=== PATIENT | female | born 1950 | race Caucasian/White ===

== ENCOUNTER → 2018-01-17 11:05 | Outpatient (CLI) | payer OTHER, MEDICARE, SELFPAY | PROVIDERS: Family Provider Family Medicine; PCP Family Medicine; Visit Provider Family Medicine | DX: N39.0 Urinary tract infection, site not specified (principal); Z53.9 Procedure and treatment not carried out, unspecified reason ==

== ENCOUNTER → 2018-08-11 09:10 | Outpatient (CLI) | payer MEDICARE, OTHER, SELFPAY ==
[2018-08-11 10:41] LABS: Alanine Aminotransferase 27 IU/L (9-52); Albumin 4.2 g/dL (3.5-5.0); Albumin Globulin Ratio 1.4 (1.0-2.8); Alkaline Phosphatase 71 U/L (38-126); Aspartate Aminotransferase 29 IU/L (14-36); BUN Creatinine Ratio 23.3 (6-22); Bilirubin Total 0.3 mg/dL (0.2-1.3); Blood Urea Nitrogen 14 mg/dL (7-17); Calcium 9.7 mg/dL (8.4-10.2); Carbon Dioxide 28 mmol/L (22-32); Chloride 104 mmol/L (98-107); Cholesterol 250 mg/dL (140-199); Estimated Glomerular Filt Rate > 60.0 mL/min (>60); Globulin 2.9 g/dL (1.7-4.1); Glucose 93 mg/dL (80-110); HDL Cholesterol 64 mg/dL (40-60); LDL Cholesterol Calculated 177 mg/dL (<100); Potassium 3.7 mmol/L (3.4-5.1); Sodium 139 mmol/L (137-145); Total Protein 7.1 g/dL (6.3-8.2); Triglycerides 45 mg/dL (35-150)
[2018-08-11 10:49] LABS: HEMOLYSIS < 15 (0-50); High Sensitivity CRP - Cardiac 0.5 mg/L (1.0-3.0)
[2018-08-11 11:13] LABS: TSH w/ Reflex to FT4 0.97 uIU/mL (0.47-4.68)
== END ==
PROVIDERS: Family Provider Family Medicine; PCP Family Medicine; Visit Provider Family Medicine
DX: E78.5 Hyperlipidemia, unspecified (principal); Z82.49 Family history of ischemic heart disease and other diseases of the circulatory system
CPT/HCPCS: 36415; 80053; 80061; 84443; 86140

== ENCOUNTER → 2018-08-21 17:08 | Outpatient (CLI) | payer MEDICARE, OTHER, SELFPAY ==
--- NOTE | 2018-08-21 17:11 | DI.RAD.S_ITS ---
PROCEDURE: XR HIP W PEL IF DONE LT MIN 4V INDICATIONS: locking, limp, decreased ROM R>L TECHNIQUE: AP pelvis with lateral view(s) of the bilateral hip(s). COMPARISON: None. FINDINGS: Bones: Mild symmetric appearing bilateral hip joint osteophytic changes are seen. No fractures or dislocations. Pelvic ring appears intact. No evidence of avascular necrosis of femoral heads. No suspicious bony lesions. Soft tissues: The visualized bowel gas pattern is normal. No suspicious soft tissue calcifications. IMPRESSION: Symmetric appearing mild bilateral hip joint osteoarthritis. Dictated by: Mendoza Willett M.D. on 08/21/2018 at 18:45 Approved by: Mendoza Willett M.D. on 08/21/2018 at 18:46
== END ==
PROVIDERS: Family Provider Family Medicine; PCP Family Medicine; Visit Provider Family Medicine
DX: M16.0 Bilateral primary osteoarthritis of hip (principal)
CPT/HCPCS: 73522

== ENCOUNTER → 2018-09-12 12:33 | Outpatient (CLI) | payer MEDICARE, OTHER, SELFPAY ==
--- NOTE | 2018-09-12 14:42 | DI.MRI.S_ITS ---
PROCEDURE: MR HIP RT WO CON INDICATIONS: right hip locking TECHNIQUE: Noncontrast coronal T1 spin echo and STIR through the bony pelvis. Coronal and axial T2 fast spin echo with fat saturation, sagittal T1 spin echo, and oblique axial T2 fast spin echo with fat saturation through the hip. COMPARISON: None. FINDINGS: Image quality: Diagnostic. Bones and joints: There is no acute fracture, dislocation, suspicious osseous lesion, or evidence of avascular necrosis involving the osseous structures of the right hip. Moderate focal marrow edema is identified involving the greater trochanter of the right proximal femur. Mild to moderate degenerative changes of the right glenohumeral joint are present. In the office angle of the right femoral head measures less than 55?. No significant right hip effusion is identified. The remainder of the imaged osseous structures of the pelvis demonstrate age-appropriate degenerative changes of the lower lumbar spine, sacroiliac joints, pubic symphysis, and left hip. These findings are more prominent involving the pubis symphysis. Labrum: Evaluation of the acetabular labrum is difficult without intra-articular contrast. However, blunting along the anterosuperior labrum is suggestive of a labral tear. No large para labral cysts are evident. Tendons and ligaments: The distal right gluteus medius and gluteus minimus tendons are diffusely edematous and demonstrate low to moderate grade intrasubstance partial thickness tearing at the level of the insertion. A small amount of fluid is contained within the greater trochanteric bursa. There is mild increased signal without significant tearing evident involving the proximal right hamstrings tendons. The distal iliopsoas tendons are intact and otherwise unremarkable. The ligamentum teres appears intact where visualized. Soft tissues: Visualized muscles demonstrate normal bulk and internal signal. Quadratus femoris muscle demonstrates no internal edema to suggest ischiofemoral impingement. The proximal sciatic neurovascular bundle appears normal adjacent to the hamstring tendons. No free pelvic fluid. Bladder wall thickness is normal. Genitourinary structures and bowel loops appear normal where visualized. IMPRESSION: 1. Mild to moderate degenerative changes of the right hip without acute fracture. 2. Anterosuperior right acetabular labral tear. 3. Low to moderate grade partial-thickness tearing and tendinopathy of the distal right gluteus medius and gluteus minimus tendons. 4. Fluid within the greater trochanteric bursa may represent bursitis. Please correlate clinically. 5. Mild proximal right hamstrings tendinopathy. 6. Mild to moderate degenerative changes involving the pelvic joints is most pronounced involving the pubis symphysis. Dictated by: Avery Villafuerte M.D. on 09/12/2018 at 16:13 Approved by: Avery Villafuerte M.D. on 09/12/2018 at 16:17
== END ==
PROVIDERS: PCP Family Medicine; Visit Provider Family Medicine
DX: M24.851 Other specific joint derangements of right hip, not elsewhere classified (principal); M25.551 Pain in right hip; M16.11 Unilateral primary osteoarthritis, right hip; S73.191A Other sprain of right hip, initial encounter; M25.851 Other specified joint disorders, right hip
CPT/HCPCS: 73721

== ENCOUNTER → 2018-10-10 10:00 | Outpatient (CLI) | payer MEDICARE, OTHER, SELFPAY ==
[2018-10-10 10:52] LABS: White Blood Cell Count 5.2 X10^3/uL (4.5-11.0)
[2018-10-10 11:08] LABS: Alanine Aminotransferase 16 IU/L (9-52); Albumin 4.3 g/dL (3.5-5.0); Albumin Globulin Ratio 1.3 (1.0-2.8); Alkaline Phosphatase 72 U/L (38-126); Aspartate Aminotransferase 30 IU/L (14-36); BUN Creatinine Ratio 28.3 (6-22); Bilirubin Total 0.5 mg/dL (0.2-1.3); Bilirubin Unconjugated 0.4 mg/dL (0.0-1.1); Blood Urea Nitrogen 17 mg/dL (7-17); Calcium 10.3 mg/dL (8.4-10.2); Carbon Dioxide 32 mmol/L (22-32); Chloride 101 mmol/L (98-107); Estimated Glomerular Filt Rate > 60.0 mL/min (>60); Globulin 3.2 g/dL (1.7-4.1); Glucose 87 mg/dL (80-110); HEMOLYSIS < 15 (0-50); Potassium 3.7 mmol/L (3.4-5.1); Sodium 140 mmol/L (137-145); Total Protein 7.5 g/dL (6.3-8.2)
== END ==
PROVIDERS: Family Provider Family Medicine; PCP Family Medicine; Visit Provider Podiatrist
DX: B35.1 Tinea unguium (principal)
CPT/HCPCS: 36415; 80048; 80076; 85048

== ENCOUNTER → 2018-10-22 13:43 | Outpatient (CLI) | payer MEDICARE, OTHER, SELFPAY ==
[2018-10-22 14:34] LABS: BUN Creatinine Ratio 21.7 (6-22); Blood Urea Nitrogen 13 mg/dL (7-17); Calcium 9.8 mg/dL (8.4-10.2); Carbon Dioxide 31 mmol/L (22-32); Chloride 100 mmol/L (98-107); Estimated Glomerular Filt Rate > 60.0 mL/min (>60); Glucose 99 mg/dL (80-110); HEMOLYSIS < 15 (0-50); Potassium 3.6 mmol/L (3.4-5.1); Sodium 137 mmol/L (137-145)
[2018-10-25 14:34] LABS: Parathyroid Hormone Int 30 pg/mL (14-64)
== END ==
PROVIDERS: PCP Family Medicine; Visit Provider Family Medicine
DX: E83.52 Hypercalcemia (principal)
CPT/HCPCS: 36415; 80048; 83970

== ENCOUNTER → 2019-04-29 11:39 | Outpatient (CLI) | payer MEDICARE, OTHER, SELFPAY ==
--- NOTE | 2019-04-29 | DI.MG.S_ITS ---
BILATERAL DIGITAL SCREENING MAMMOGRAM 3D/2D WITH CAD: 04/29/2019 CLINICAL: Routine screening. Family history of breast cancer. Comparison is made to exams dated: 11/29/2016 mammogram, 12/14/2015 mammogram, and 11/26/2013 mammogram - [facility]. The tissue of both breasts is heterogeneously dense. This may lower the sensitivity of mammography. Current study was also evaluated with a Computer Aided Detection (CAD) system. There are benign calcifications in both breasts. No significant masses, calcifications, or other findings are seen in either breast. There has been no significant interval change. IMPRESSION: There is no mammographic evidence of malignancy. A 1 year screening mammogram is recommended. This exam was interpreted at Station ID: [id number]. NOTE: For mammograms, a report in lay terms will be sent to the patient. Approximately 15% of breast malignancies will not be visualized mammographically. In the management of a palpable breast mass, a negative mammogram must not discourage biopsy of a clinically suspicious lesion. Electronically Signed By: Leoncio kwon/chantelle:04/29/2019 16:46:25 letter sent: Normal Exam ACR BI-RADS Category 2: Benign Finding(s) 3342F
== END ==
PROVIDERS: PCP Family Medicine; Visit Provider Family Medicine
DX: Z12.31 Encounter for screening mammogram for malignant neoplasm of breast (principal); Z80.3 Family history of malignant neoplasm of breast
CPT/HCPCS: 77063; 77067

== ENCOUNTER → 2019-12-21 10:09 | Outpatient (CLI) | payer MEDICARE, OTHER, SELFPAY | PROVIDERS: PCP Family Medicine; Referring Provider Family Medicine; Visit Provider Family Medicine | DX: M85.852 Other specified disorders of bone density and structure, left thigh (principal); Z78.0 Asymptomatic menopausal state; Z82.62 Family history of osteoporosis | CPT/HCPCS: 77080 ==

== ENCOUNTER → 2019-12-30 07:37 | Outpatient (CLI) | payer MEDICARE, OTHER, SELFPAY ==
[2019-12-30 10:54] LABS: Alanine Aminotransferase 16 IU/L (<35); Albumin 3.7 g/dL (3.5-5.0); Albumin Globulin Ratio 1.4 (1.0-2.8); Alkaline Phosphatase 67 U/L (38-126); Aspartate Aminotransferase 32 IU/L (14-36); BUN Creatinine Ratio 23.9 (6-22); Bilirubin Total 0.3 mg/dL (0.2-1.3); Blood Urea Nitrogen 11 mg/dL (7-17); Calcium 9.6 mg/dL (8.4-10.2); Carbon Dioxide 29 mmol/L (22-32); Chloride 107 mmol/L (98-107); Cholesterol 214 mg/dL (140-199); Estimated Glomerular Filt Rate > 60.0 mL/min (>60); Globulin 2.7 g/dL (1.7-4.1); Glucose 88 mg/dL (80-110); HDL Cholesterol 61 mg/dL (40-60); HEMOLYSIS < 15 (0-50); LDL Cholesterol Calculated 143 mg/dL (<100); Potassium 4.1 mmol/L (3.4-5.1); Sodium 139 mmol/L (137-145); Total Protein 6.4 g/dL (6.3-8.2); Triglycerides 48 mg/dL (35-150)
[2019-12-30 10:58] LABS: High Sensitivity CRP - Cardiac 0.6 mg/L (1.0-3.0)
[2019-12-30 12:39] LABS: TSH w/ Reflex to FT4 1.36 uIU/mL (0.47-4.68)
== END ==
PROVIDERS: PCP Family Medicine; Referring Provider Family Medicine; Visit Provider Family Medicine
DX: E78.5 Hyperlipidemia, unspecified (principal); Z82.49 Family history of ischemic heart disease and other diseases of the circulatory system
CPT/HCPCS: 36415; 80053; 80061; 84443; 86140

== ENCOUNTER → 2020-01-07 11:24 | Outpatient (CLI) | payer MEDICARE, OTHER, SELFPAY | PROVIDERS: PCP Family Medicine; Referring Provider Family Medicine; Visit Provider Family Medicine | DX: M85.80 Other specified disorders of bone density and structure, unspecified site (principal) | CPT/HCPCS: 36415; 82306 ==

== ENCOUNTER → 2020-01-13 07:27 | Outpatient (CLI) | payer MEDICARE, OTHER, SELFPAY ==
[2020-01-13 09:16] LABS: TSH w/ Reflex to FT4 1.51 uIU/mL (0.47-4.68)
[2020-01-15 14:36] LABS: C-Telopeptide, Serum 329 pg/mL (.)
== END ==
PROVIDERS: PCP Family Medicine; Referring Provider Family Medicine; Visit Provider Family Medicine
DX: M85.80 Other specified disorders of bone density and structure, unspecified site (principal); E78.5 Hyperlipidemia, unspecified; Z82.49 Family history of ischemic heart disease and other diseases of the circulatory system
CPT/HCPCS: 36415; 82523; 84443

== ENCOUNTER → 2020-04-18 08:16 | Outpatient (CLI) | payer MEDICARE, OTHER, SELFPAY ==
[2020-04-22 18:43] LABS: C-Telopeptide, Serum 76 pg/mL (.)
== END ==
PROVIDERS: PCP Family Medicine; Referring Provider Family Medicine; Visit Provider Family Medicine
DX: M85.80 Other specified disorders of bone density and structure, unspecified site (principal)
CPT/HCPCS: 36415; 82523

== ENCOUNTER → 2020-09-27 10:20 | Outpatient (CLI) | payer MEDICARE, OTHER, SELFPAY ==
--- NOTE | 2020-09-27 | DI.MG.S_ITS ---
BILATERAL DIGITAL SCREENING MAMMOGRAM 3D/2D WITH CAD: 09/27/2020 CLINICAL: Routine screening. Family history of breast cancer. Comparison is made to exams dated: 04/29/2019 mammogram - [facility], 11/29/2016 mammogram, and 12/14/2015 mammogram - [facility]. The tissue of both breasts is heterogeneously dense. This may lower the sensitivity of mammography. Current study was also evaluated with a Computer Aided Detection (CAD) system. There are benign calcifications in both breasts. There also are benign post operative findings in both breasts. No significant masses, calcifications, or other findings are seen in either breast. There has been no significant interval change. IMPRESSION: BENIGN There is no mammographic evidence of malignancy. A 1 year screening mammogram is recommended. This exam was interpreted at Station ID: [id number]. NOTE: For mammograms, a report in lay terms will be sent to the patient. Approximately 15% of breast malignancies will not be visualized mammographically. In the management of a palpable breast mass, a negative mammogram must not discourage biopsy of a clinically suspicious lesion. Electronically Signed By: Oracio fried/chantelle:09/27/2020 12:35:18 letter sent: Normal Exam ACR BI-RADS Category 2: Benign Finding(s) 3342F
== END ==
PROVIDERS: PCP Family Medicine; Referring Provider Family Medicine; Visit Provider Family Medicine
DX: Z12.31 Encounter for screening mammogram for malignant neoplasm of breast (principal); Z80.3 Family history of malignant neoplasm of breast
CPT/HCPCS: 77063; 77067

== ENCOUNTER → 2021-01-10 08:26 | Outpatient (CLI) | payer MEDICARE, OTHER, SELFPAY ==
[2021-01-10 09:12] LABS: Alanine Aminotransferase 19 IU/L (<35); Albumin 4.2 g/dL (3.5-5.0); Albumin Globulin Ratio 1.4 (1.0-2.8); Alkaline Phosphatase 59 U/L (38-126); Aspartate Aminotransferase 34 IU/L (14-36); BUN Creatinine Ratio 27.8 (6-22); Bilirubin Total 0.3 mg/dL (0.2-1.3); Blood Urea Nitrogen 15 mg/dL (7-17); Calcium 9.8 mg/dL (8.4-10.2); Carbon Dioxide 30 mmol/L (22-32); Chloride 107 mmol/L (98-107); Estimated Glomerular Filt Rate > 60.0 mL/min (>60); Globulin 2.9 g/dL (1.7-4.1); Glucose 97 mg/dL (80-110); HEMOLYSIS < 15 (0-50); Potassium 4.2 mmol/L (3.4-5.1); Sodium 141 mmol/L (137-145); Total Protein 7.1 g/dL (6.3-8.2)
[2021-01-10 09:15] LABS: High Sensitivity CRP - Cardiac 0.5 mg/L (1.0-3.0)
[2021-01-13 16:29] LABS: C-Telopeptide, Serum 50 pg/mL (.)
== END ==
PROVIDERS: PCP Family Medicine; Referring Provider Family Medicine; Visit Provider Family Medicine
DX: M85.80 Other specified disorders of bone density and structure, unspecified site (principal); R03.0 Elevated blood-pressure reading, without diagnosis of hypertension; Z82.49 Family history of ischemic heart disease and other diseases of the circulatory system; Z78.0 Asymptomatic menopausal state
CPT/HCPCS: 36415; 80053; 82306; 82523; 86140

== ENCOUNTER 2021-08-28 18:10 | Emergency (ER) | payer MEDICARE, OTHER, SELFPAY ==
[2021-08-28] VITALS (13 sets, daily range): BP systolic 142–184; BP diastolic 70–104; PULSE 77–160; RESP 16–18; TEMP 36.4; O2SAT 94–98; BMI 24.9
--- NOTE | 2021-08-28 18:28 | DI.RAD.S_ITS ---
PROCEDURE: XR CHEST 1V INDICATIONS: chest pain TECHNIQUE: One view of the chest was acquired. COMPARISON: None. FINDINGS: Surgical changes and devices: None. Lungs and pleura: Lungs are clear. No pleural effusions or pneumothorax. Mediastinum: Mediastinal contours appear normal. Heart size is normal. Bones and chest wall: No suspicious bony lesions. Overlying soft tissues appear unremarkable. IMPRESSION: No acute cardiopulmonary abnormality. Dictated by: Reji Jain M.D. on 08/28/2021 at 19:13 Approved by: Reji Jain M.D. on 08/28/2021 at 19:13
--- NOTE | 2021-08-28 18:40 | PC.NURSE ---
While I was swabbing the patient for covid her heart rate decreased from a regular and consistent rate of 150bpm to 105bpm. EKG shows sinus tach at this time. NO EKG done of heart rate 150bpm, unsure which rhythm is was.
[2021-08-28] MEDS: SODIUM CHLORIDE 0.9% 1,000 ML 1000 ML IV (18:44)
[2021-08-28 18:45] LABS: Add Manual Diff / Slide Review NO; Basophils Absolute Auto 0 /uL (0-100); Basophils Percent Auto 0.5 % (0-2); Eosinophils Absolute Auto 100 /uL (0-450); Eosinophils Percent Auto 1.3 % (2-4); Hematocrit 47.5 % (36-46); Hemoglobin 16.2 g/dL (12.0-16.0); Lymphocytes Absolute Auto 1400 /uL (1100-4500); Lymphocytes Percent Auto 36.4 % (25-40); Mean Corpuscular HGB Conc 34.2 % (30-36); Mean Corpuscular Hemoglobin 29.9 PG (26-34); Mean Corpuscular Volume 87.7 fL (80-100); Monocytes Absolute Auto 600 /uL (0-900); Monocytes Percent Auto 15.2 % (3-14); Neutrophils Absolute Auto 1800 /uL (1500-7000); Neutrophils Percent Auto 46.6 % (50-75); Platelet Count 216 X10^3/uL (150-400); Red Blood Cell Count 5.42 X10^6/uL (4.0-5.2); Red Cell Distribution Width 13.4 % (11.6-14.8); White Blood Cell Count 3.8 X10^3/uL (4.5-11.0)
[2021-08-28 18:58] LABS: COVID19 -Nasal RAPID Negative (Negative)
[2021-08-28 19:16] LABS: Alanine Aminotransferase 22 IU/L (<35); Albumin 4.7 g/dL (3.5-5.0); Albumin Globulin Ratio 1.3 (1.0-2.8); Alkaline Phosphatase 75 U/L (38-126); Aspartate Aminotransferase 43 IU/L (14-36); BUN Creatinine Ratio 22.2 (6-22); Bilirubin Total 0.3 mg/dL (0.2-1.3); Blood Urea Nitrogen 14 mg/dL (7-17); Calcium 10.4 mg/dL (8.4-10.2); Carbon Dioxide 27 mmol/L (22-32); Chloride 103 mmol/L (98-107); Creatine Kinase 101 U/L (30-135); Estimated Glomerular Filt Rate > 60.0 mL/min (>60); Globulin 3.5 g/dL (1.7-4.1); Glucose 115 mg/dL (80-110); Lipase 112 U/L (23-300); Magnesium 1.9 mg/dL (1.6-2.3); Potassium 3.3 mmol/L (3.4-5.1); Sodium 140 mmol/L (137-145); Total Protein 8.2 g/dL (6.3-8.2)
--- NOTE | 2021-08-28 19:21 | ED_ITS ---
HPI - Arrhythmia/Palpitations General Chief Complaint: Arrhythmia/Palpitations Stated Complaint: High BP and HR Time Seen by Provider: 08/28/21 19:18 Mode of arrival: Family Vehicle History of Present Illness HPI narrative: Otherwise healthy 71-year-old woman with no chronic medications and no recent fnic-afv-sbpclmg medications presents with complaints of her heart rate at 150 for the last 2-3 hours. She noted at this afternoon while she was bending over a chair. She notes that she has had an upper respiratory infection for the past 4 days describes runny nose, sneezing, coughing very poor sleep on the no fevers no prior episodes palpitations no lower extremity edema and no orthopnea. She has not had nausea, vomiting or diarrhea. She is not complaining of a headache. She does note that she has not been eating or drinking as much over the last couple of days because she has been feeling unwell. Related Data Home Medications Medication Instructions Recorded Confirmed multivitamin (Daily Multi-Vitamin) 1 tab PO DAILY 01/15/20 02/20/21 Previous Rx's Medication Instructions Recorded measles,mumps,rubella vacc(PF) 0.5 ml SUBCUT ONCE #1 each 01/06/20 1,000-12,019XAED46/0.5 mL subcut alendronate 70 mg tablet 70 mg PO QWEEK #12 tab 03/07/21 estradiol 10 mcg vaginal tablet 10 mcg VAGINAL 2XW #32 tab 03/09/21 Allergies Allergy/AdvReac Type Severity Reaction Status Date / Time Quinolones [QUINOLONES] Allergy Mild Verified 08/28/21 18:27 Review of Systems Review of Systems Narrative: Remainder of complete review of systems is otherwise unremarkable except for that included in the HPI. Patient History Medical History (Updated 08/28/21 @ 20:42 by Cindi Oquendo MD) Alopecia (~2007) Frequent UTI Measles Vaginal dryness Surgical History Anesthesia Status post breast biopsy (~2006) Family History Father Prostate cancer Smoker Alcohol drinker Heart attack Mother No problems noted. Social History Smoking Status: Never smoker Smoking Status: Never smoker alcohol intake frequency: a few times a month Substance Use Type: does not use Exam Initial Vital Signs Initial Vital Signs: Vital Signs Temperature 97.6 F 08/28/21 18:22 Pulse Rate 160 H 08/28/21 18:22 Respiratory Rate 18 08/28/21 18:22 Blood Pressure 154/104 H 08/28/21 18:22 Pulse Oximetry 98 08/28/21 18:22 General: Healthy appearing, in no acute distress. Able to give a complete and coherent history. Well-nourished well-developed HEENT: Moist mucous membranes, normal sclera with reactive pupils, Neck: No JVD, supple Respiratory: Lungs are clear to auscultation, no wheezing no rales no rhonchi. Full and symmetrical air movement Cardiac: Regular rate and rhythm no murmurs no bruits Abdomen: Soft, nontender, good bowel tones, no flank pain Skin: Warm and dry, no rashes Neurologic: Grossly neurologically intact with no obvious asymmetries or abnor malities Extremities: No trauma, well perfused Psych: Cooperative, appropriate insight and affect Course Orders Ordered: ED Orders 08/28/21 18:28 XR chest 1V Stat Complete Blood Count AUTO DIFF Stat Comprehensive Metabolic Panel Stat Lipase Stat Magnesium Stat Troponin & CK Cardiac Panel Stat EKG-12 Lead Stat 08/28/21 18:38 COVID19 -Nasal RAPID/Pre-Proc Stat Discontinued Medications Sodium Chloride (Normal Saline 0.45%) 1,000 mls @ 1,000 mls/hr IV BOLUS ONE Stop: 08/28/21 19:38 Last Admin: 08/28/21 18:42 Dose: Not Given Documented by: RAYMOND Sodium Chloride (Normal Saline 0.9%) 1,000 mls @ 1,000 mls/hr IV BOLUS ONE Stop: 08/28/21 19:41 Last Infusion: 08/28/21 19:59 Dose: 0 mls/hr Documented by: Admin: 08/28/21 18:44 Dose: 1,000 mls/hr Documented by: RAYMOND Vital Signs Vital signs: Vital Signs - 8 hr 08/28/21 18:22 08/28/21 18:31 08/28/21 18:45 Temperature 97.6 F Pulse Rate 160 H 108 H 98 H Respiratory Rate 18 Blood Pressure 154/104 H 169/92 H Pulse Oximetry 98 96 95 04/11/22 19:00 08/28/21 19:15 08/28/21 19:30 Temperature Pulse Rate 92 H 87 82 Respiratory Rate Blood Pressure 154/80 H 158/74 H Pulse Oximetry 94 94 95 08/28/21 19:45 08/28/21 20:00 Temperature Pulse Rate 79 89 Respiratory Rate 16 Blood Pressure 184/86 H Pulse Oximetry 95 97 MDM - Arrhythmia/Palpitations Lab Data Result diagrams: 08/28/21 18:28 08/28/21 18:28 Labs: Lab Results 08/28/21 08/28/21 08/28/21 Range/Units 18:28 18:28 18:38 WBC 3.8 L (4.5-11.0) X10^3/uL RBC 5.42 H (4.0-5.2) X10^6/uL Hgb 16.2 H (12.0-16.0) g/dL Hct 47.5 H (36-46) % MCV 87.7 (80-100) fL MCH 29.9 (26-34) PG MCHC 34.2 (30-36) % RDW 13.4 (11.6-14.8) % Plt Count 216 (150-400) X10^3/uL Neut % (Auto) 46.6 L (50-75) % Lymph % (Auto) 36.4 (25-40) % [place] % (Auto) 15.2 H (3-14) % Eos % (Auto) 1.3 L (2-4) % Baso % (Auto) 0.5 (0-2) % Neut # (Auto) 1800 (8168-1888) /uL Lymph # (Auto) 1400 (2794-4795) /uL [place] # (Auto) 600 (0-900) /uL Eos # (Auto) 100 (0-450) /uL Baso # (Auto) 0 (0-100) /uL Sodium 140 (137-145) mmol/L Potassium 3.3 L (3.4-5.1) mmol/L Chloride 103 (98-107) mmol/L Carbon Dioxide 27 (22-32) mmol/L BUN 14 (7-17) mg/dL Creatinine 0.63 (0.52-1.04) mg/dL Estimated GFR > 60.0 (>60) mL/min BUN/Creatinine Ratio 22.2 H (6-22) Glucose 115 H (80-110) mg/dL Calcium 10.4 H (8.4-10.2) mg/dL Magnesium 1.9 (1.6-2.3) mg/dL Total Bilirubin 0.3 (0.2-1.3) mg/dL AST 43 H (14-36) IU/L ALT 22 (<35) IU/L Alkaline Phosphatase 75 (38-126) U/L Total Creatine Kinase 101 (30-135) U/L CK-MB (CK-2) 2.33 (<2.37) ng/mL CK-MB (CK-2) Rel Index 2.3 (1.5-5.0) % Troponin I < 0.012 (0.01-0.034) ng/mL Total Protein 8.2 (6.3-8.2) g/dL Albumin 4.7 (3.5-5.0) g/dL Globulin 3.5 (1.7-4.1) g/dL Albumin/Globulin Ratio 1.3 (1.0-2.8) Lipase 112 (23-300) U/L SARS-CoV-2 (PCR) Negative (Negative) Imaging Data Chest x-ray: Radiologist's Impresson: FINDINGS:? ? Surgical changes and devices:? None.? ? Lungs and pleura:? Lungs are clear.? No pleural effusions or pneumothorax.? ? Mediastinum:? Mediastinal contours appear normal.? Heart size is normal.? ? Bones and chest wall:? No suspicious bony lesions.? Overlying soft tissues appear unremarkable.? ? IMPRESSION:? No acute cardiopulmonary abnormality. ? ? Dictated by: Reji Jain M.D. on 08/28/2021 at 19:13? ?? ECG Data Interpretation: Sinus rhythm at a rate of 108 Normal intervals, normal axis No acute ischemic changes MDM Narrative Medical decision making narrative: 71-year-old woman who presents to triage with a heart rate at 155 complaining of upper respiratory symptoms. COVID swab was done in triage and with posterior pharyngeal stimulation she converted to a rate in the 105 range and initial EKG shows sinus tach only. She has not had previous episodes of arrhythmia. This lasted for approximately an hour and half. Was not associated with pain or dyspnea just the sensation that her heart was beating quickly. Workup is entirely unremarkable. No evidence of pneumonia, acute coronary syndrome significant electrolyte abnormalities. She has have a minor hypokalemia at 3.3 but normally functioning kidneys and is now starting to eat normally. I suspect that whatever the atrial arrhythmia was was related to dehydration, sleep deprivation and her acute upper respiratory illness. Her blood pressures have been slightly elevated and I have asked her to check these as an outpatient daily. She had an episode last summer with significant elevated blood pressures that when followed on a regular basis over the course of a month were back down in the 120-130 systolic range with no additional treatment required. Have her follow-up with her primary care physician and return to the ER if she has additional questions. All of this is explained to patient and her , questions are answered she is safe for home discharge Discharge Plan Departure Patient Disposition: Home Clinical Impression: Arrhythmia, atrial, Elevated blood pressure reading, Upper respiratory infection Activity Restrictions/Additional Instructions: Thank you for coming in today You were in a rapid rhythm when you came into the emergency department and with the posterior pharyngeal swab for the COVID test we stimulated your vagus nerve enough that you spontaneously converted to a regular sinus rhythm Your blood work was very reassuring in your chest x-ray was normal. I am not seeing any evidence of severe bacterial infection, heart attack or heart attack like syndromes or stroke or stroke-like syndromes. Your blood pressure was slightly elevated however when you been feeling generally unwell, not sleeping well for the past few nights my recommendation at this point will be to simply check daily blood pressures and see how they trend. You will need to follow-up with her primary care physician within the next 1-2 weeks. Please make sure you bring all of those records with you to review with your new physician Regarding the fast heart rate, we do not know what it was because it had converted to regular sinus rhythm by the time we did an EKG. If you have another episode of this, consider calling 911 and explaining that you have been having palpitations and ask them to do an EKG so that we can document what the rhythm is. Your primary care doctor may want you to do some outpatient cardiac monitoring as well. . If you have new or worsening symptoms, please return to the ER Prescriptions: No Action multivitamin [Daily Multi-Vitamin] Tablet 1 tab PO DAILY 0RF alendronate 70 mg tablet 70 mg PO QWEEK Qty: 12 4RF estradiol 10 mcg tablet 10 mcg vaginal 2XW Qty: 32 3RF measles,mumps,rubella vacc(PF) 1,000-12,500 TCID50/0.5 mL recon soln 0.5 ml SUBCUT ONCE Qty: 1 1RF Referrals: Dilma Martino DO [Primary Care Provider] -
[2021-08-28 19:28] LABS: Troponin I < 0.012 ng/mL (0.01-0.034)
[2021-08-28 19:31] LABS: CKMB % Relative Index 2.3 % (1.5-5.0); Creatine Kinase MB 2.33 ng/mL (<2.37); HEMOLYSIS 17 (0-50)
== END 2021-08-28 20:56 | disposition home or self-care (01) ==
PROVIDERS: Emergency Provider Emergency Medicine; PCP Family Medicine
DX: I49.8 Other specified cardiac arrhythmias (principal); R03.0 Elevated blood-pressure reading, without diagnosis of hypertension; J06.9 Acute upper respiratory infection, unspecified; Z20.822 Contact with and (suspected) exposure to COVID-19
CPT/HCPCS: 36415; 71045; 80053; 82550; 82553; 83690; 83735; 84484; 85025; 87635; 93005; 93010; 96360; 99284; C9803

== ENCOUNTER → 2021-12-14 11:16 | Outpatient (CLI) | payer MEDICARE, OTHER, SELFPAY ==
--- NOTE | 2021-12-14 | DI.MG.S_ITS ---
BILATERAL DIGITAL SCREENING MAMMOGRAM 3D/2D WITH CAD: 12/14/2021 CLINICAL: Routine screening. Family history of breast cancer. Comparison is made to exams dated: 09/27/2020 mammogram, 04/29/2019 mammogram - [facility], and 11/29/2016 mammogram - [facility]. The tissue of both breasts is heterogeneously dense. This may lower the sensitivity of mammography. Current study was also evaluated with a Computer Aided Detection (CAD) system. There is a possible developing oval focal asymmetry in the right breast at 9 o'clock middle depth. No other significant masses, calcifications, or other findings are seen in either breast. IMPRESSION: INCOMPLETE: NEEDS ADDITIONAL IMAGING EVALUATION The possible developing oval focal asymmetry in the right breast is indeterminate. Additional views with possible ultrasound are recommended. Based on Tyrer-Cuzick model (a risk assessment model), the patient's lifetime risk is 20.6% and her 10 year risk is 13.4%. If a patient has an elevated risk, a more comprehensive evaluation should be considered and/or a referral to a genetic counselor. The [place] [employer], [place] [employer], and NCCN Guidelines advise the consideration of Breast MRI as an adjunct to screening mammography in patients whose Lifetime risk to develop breast cancer is 20% or higher. This exam was interpreted at Station ID: [id number]. NOTE: For mammograms, a report in lay terms will be sent to the patient. Approximately 15% of breast malignancies will not be visualized mammographically. In the management of a palpable breast mass, a negative mammogram must not discourage biopsy of a clinically suspicious lesion. Electronically Signed By: Nikki rodgers/chantelle:12/14/2021 14:33:09 letter sent: Additional Imaging Needed ACR BI-RADS Category 0: Incomplete 3340F
== END ==
PROVIDERS: PCP Pediatrics; Referring Provider Pediatrics; Visit Provider Pediatrics
DX: Z12.31 Encounter for screening mammogram for malignant neoplasm of breast (principal); Z80.3 Family history of malignant neoplasm of breast
CPT/HCPCS: 77063; 77067

== ENCOUNTER → 2021-12-28 13:18 | Outpatient (CLI) | payer MEDICARE, OTHER, SELFPAY ==
--- NOTE | 2021-12-28 | DI.MG.S_ITS ---
UNILATERAL RIGHT DIGITAL DIAGNOSTIC MAMMOGRAM 3D/2D WITH ADDITIONAL VIEWS: 12/28/2021 CLINICAL: Additional evaluation requested from prior study. Comparison is made to exams dated: 12/14/2021 mammogram, 09/27/2020 mammogram, and 04/29/2019 mammogram - [facility]. The tissue of right breast is heterogeneously dense. This may lower the sensitivity of mammography. No significant masses, calcifications, or other findings are seen in the breast. In the 7:00 to 8:00 position 7 to 8 cm from the nipple there is a likely cluster of lymph nodes measuring 1.9 x 1.1 cm. These appear stable compared to prior mammograms/tomograms. IMPRESSION: INCOMPLETE: NEEDS ADDITIONAL IMAGING EVALUATION Ultrasound is recommended for further evaluation. Ultrasound will be performed and dictated separately. Based on Tyrer-Cuzick model (a risk assessment model), the patient's lifetime risk is 20.6% and her 10 year risk is 13.4%. If a patient has an elevated risk, a more comprehensive evaluation should be considered and/or a referral to a genetic counselor. The [place] [employer], [employer] [place], and NCCN Guidelines advise the consideration of Breast MRI as an adjunct to screening mammography in patients whose Lifetime risk to develop breast cancer is 20% or higher. This exam was interpreted at Station ID: [id number]. NOTE: For mammograms, a report in lay terms will be sent to the patient. Approximately 15% of breast malignancies will not be visualized mammographically. In the management of a palpable breast mass, a negative mammogram must not discourage biopsy of a clinically suspicious lesion. Electronically Signed By: Reji Jain acr/:12/28/2021 14:33:33 ACR BI-RADS Category 0: Incomplete 3340F
--- NOTE | 2021-12-28 | DI.US.S_ITS ---
LIMITED ULTRASOUND OF RIGHT BREAST: 12/28/2021 CLINICAL: Patient returns today to evaluate a density in the right breast. No prior exams were available for comparison. Color flow and real-time ultrasound of the right breast 7-8 o'clock region were performed. Cook scale images of the real-time examination were reviewed. In the right breast 7:00 position 7 cm from nipple there is a cluster of lymph nodes measuring 1.9 x 1.1 cm. Additionally, prior tomograms were evaluated and this finding appears stable on mammogram. No additional finding is identified with ultrasound. IMPRESSION: BENIGN There is no sonographic evidence of malignancy. A 1 year screening mammogram is recommended. This exam was interpreted at Station ID: [id number]. Electronically Signed By: Reji Jain acr/:12/28/2021 14:35:14 letter sent: Normal Exam Ultrasound BI-RADS: 2 Benign
== END ==
PROVIDERS: PCP Pediatrics; Referring Provider Pediatrics; Visit Provider Pediatrics
DX: R92.8 Other abnormal and inconclusive findings on diagnostic imaging of breast (principal)
CPT/HCPCS: 76642; 77065; G0279

== ENCOUNTER → 2023-02-20 11:50 | Outpatient (CLI) | payer MEDICARE, OTHER, SELFPAY ==
--- NOTE | 2023-02-20 | DI.MG.S_ITS ---
BILATERAL DIGITAL SCREENING MAMMOGRAM 3D/2D WITH CAD: 02/20/2023 CLINICAL: Routine screening. Family history of breast cancer. Comparison is made to exams dated: 12/14/2021 mammogram, 09/27/2020 mammogram, and 04/29/2019 mammogram - [facility]. Both breasts are heterogeneously dense, which may obscure small masses (category c / 51-75% glandular tissue). Current study was also evaluated with a Computer Aided Detection (CAD) system. No significant masses, calcifications, or other findings are seen in either breast. There has been no significant interval change. IMPRESSION: NEGATIVE There is no mammographic evidence of malignancy. A 1 year screening mammogram is recommended. Based on the Tyrer Cuzick model (a risk assessment model) the patient's lifetime risk is 19.5% and her 10 year risk is 13.7%. According to the ACR, ACS, and NCCN guidelines, an annual breast MRI exam along with mammogram is recommended if the patient's lifetime risk is 20% or greater. This exam was interpreted at Station ID: [id number]. NOTE: For mammograms, a report in lay terms will be sent to the patient. Approximately 15% of breast malignancies will not be visualized mammographically. In the management of a palpable breast mass, a negative mammogram must not discourage biopsy of a clinically suspicious lesion. Electronically Signed By: Leoncio kwon/chantelle:02/20/2023 17:35:55 letter sent: Normal Exam ACR BI-RADS Category 1: Negative 3341F
== END ==
PROVIDERS: PCP Pediatrics; Referring Provider Student in an Organized Health Care Education/Training Program; Visit Provider Student in an Organized Health Care Education/Training Program
DX: Z12.31 Encounter for screening mammogram for malignant neoplasm of breast (principal); Z80.3 Family history of malignant neoplasm of breast
CPT/HCPCS: 77063; 77067

== ENCOUNTER → 2024-03-06 11:01 | Outpatient (CLI) | payer MEDICARE, OTHER, SELFPAY ==
--- NOTE | 2024-03-06 11:02 | DI.MG.S_ITS ---
BILATERAL DIGITAL SCREENING MAMMOGRAM 3D/2D WITH CAD: 03/06/2024 CLINICAL: Routine screening. Family history of breast cancer. Comparison is made to exams dated: 02/20/2023 mammogram, 12/14/2021 mammogram, 09/27/2020 mammogram, 12/28/2021 mammogram, 04/29/2019 mammogram - [facility], and 11/29/2016 mammogram - [facility]. The breasts are heterogeneously dense, which may obscure small masses (category c / 51-75% glandular tissue). Current study was also evaluated with a Computer Aided Detection (CAD) system. There are benign post operative findings in both breasts. No significant masses, calcifications, or other findings are seen in either breast. There has been no significant interval change. IMPRESSION: BENIGN There is no mammographic evidence of malignancy. A 1 year screening mammogram is recommended. Based on the Tyrer Cuzick model (a risk assessment model) the patient's lifetime risk is 18.5% and her 10 year risk is 14.1%. According to the ACR, ACS, and NCCN guidelines, an annual breast MRI exam along with mammogram is recommended if the patient's lifetime risk is 20% or greater. This exam was interpreted at Station ID: [id number]. NOTE: For mammograms, a report in lay terms will be sent to the patient. Approximately 15% of breast malignancies will not be visualized mammographically. In the management of a palpable breast mass, a negative mammogram must not discourage biopsy of a clinically suspicious lesion. Electronically Signed By: Rahel Arguelles M.D., Ph.D. matilde/chantelle:03/06/2024 23:24:47 letter sent: Normal Exam ACR BI-RADS Category 2: Benign
== END ==
PROVIDERS: PCP Student in an Organized Health Care Education/Training Program; Referring Provider Student in an Organized Health Care Education/Training Program; Visit Provider Student in an Organized Health Care Education/Training Program
DX: Z12.31 Encounter for screening mammogram for malignant neoplasm of breast (principal); Z80.3 Family history of malignant neoplasm of breast; R92.333 Mammographic heterogeneous density, bilateral breasts
CPT/HCPCS: 77063; 77067